=== PATIENT | male | born 1945 | race Caucasian/White ===

== ENCOUNTER 2019-02-01 08:09 | Outpatient (REF) | payer MEDICARE, MEDICAID, SELFPAY ==
[2019-02-01 23:02] LABS: Anion Gap 8.6 mmol/L (3-11); BUN 15 mg/dL (7-18); CO2 28.4 mmol/L (21.0-32.0); Calcium 8.4 mg/dL (8.5-10.1); Calculated LDL 166 mg/dL; Chloride 106 mmol/L (98-107); Cholesterol 223 mg/dL (50-200); Glucose 94 mg/dL (70-100); HDL Cholesterol 48 mg/dL (40-60); Potassium 3.9 mmol/L (3.5-5.1); Sodium 143 mmol/L (136-145); Triglyceride 45 mg/dL (30-150)
== END 2019-02-01 08:29 ==
LOC: NCHCN 08:09
PROVIDERS: PCP Family Medicine; Visit Provider Internal Medicine
DX: E78.5 Hyperlipidemia, unspecified (principal); I10 Essential (primary) hypertension
CPT/HCPCS: 80048; 80061; 83721

== ENCOUNTER 2025-05-17 17:30 | Outpatient (REF) | payer MEDICARE, SELFPAY ==
[2025-05-17 20:50] LABS: HCT 41.3 % (40.0-50.0); HGB 13.1 g/dL (13.5-17.5); MCH 29.2 pg (27.0-33.0); MCHC 31.7 % (32.0-36.0); MCV 92 fL (80-95); MPV 9.5 fL (8.0-11.0); Platelet Count 366 10^3/uL (130-400); RBC 4.48 10^6/uL (4.36-5.78); RDW 13.5 % (11.8-14.1); RDW-SD 45.9 fL; WBC 9.35 10^3/uL (4.4-10.8)
[2025-05-17 21:38] LABS: ALT 39 U/L (16-63); AST 19 U/L (15-37); Albumin 3.4 g/dL (3.4-5.0); Alkaline Phosphatase 127 U/L (46-116); Anion Gap 9.2 mmol/L (3-11); BUN 21 mg/dL (7-18); Bilirubin, Total 0.4 mg/dL (0.2-1.0); CO2 28.8 mmol/L (21.0-32.0); Calcium 8.8 mg/dL (8.5-10.1); Chloride 103 mmol/L (98-107); Cholesterol 225 mg/dL (<200); Glucose 109 mg/dL (74-106); HDL Cholesterol 54 mg/dL (>or=40); Potassium 4.1 mmol/L (3.5-5.1); Sodium 141 mmol/L (136-145); Total Protein 7.7 g/dL (6.4-8.2); Vitamin B12 405 pg/mL (193-986)
== END 2025-05-17 17:31 | disposition home or self-care (01) ==
LOC: NCHCN 17:30
PROVIDERS: PCP Family Medicine; Visit Provider Internal Medicine
DX: I10 Essential (primary) hypertension (principal); R41.3 Other amnesia
CPT/HCPCS: 80053; 80061; 85027; 82607

== ENCOUNTER 2025-05-28 21:14 | Outpatient (REF) | payer MEDICARE, SELFPAY ==
[2025-05-28 22:20] LABS: Anion Gap 9.2 mmol/L (3-11); BUN 16 mg/dL (9-23); CO2 29.8 mmol/L (20.0-31.0); Calcium 8.8 mg/dL (8.3-10.6); Chloride 101 mmol/L (98-107); Glucose 100 mg/dL (74-106); Potassium 3.4 mmol/L (3.5-5.1); Sodium 140 mmol/L (136-145)
== END 2025-05-28 21:15 | disposition home or self-care (01) ==
LOC: NCHCN 21:14
PROVIDERS: PCP Family Medicine; Visit Provider Internal Medicine
DX: I10 Essential (primary) hypertension (principal)
CPT/HCPCS: 80048

== ENCOUNTER 2025-06-18 16:02 | Outpatient (REF) | payer MEDICARE, SELFPAY ==
[2025-06-18 22:10] LABS: Anion Gap 9.2 mmol/L (3-11); BUN 22 mg/dL (9-23); CO2 25.8 mmol/L (20.0-31.0); Calcium 8.6 mg/dL (8.3-10.6); Chloride 104 mmol/L (98-107); Glucose 147 mg/dL (74-106); Potassium 3.9 mmol/L (3.5-5.1); Sodium 139 mmol/L (136-145)
== END 2025-06-18 16:03 | disposition home or self-care (01) ==
LOC: NCHCN 16:02
PROVIDERS: PCP Family Medicine; Visit Provider Internal Medicine
DX: I10 Essential (primary) hypertension (principal)
CPT/HCPCS: 80048